=== PATIENT | male | born 1960 | race Caucasian/White ===

== ENCOUNTER 2024-12-24 08:39 | Day surgery (SDC) | payer MEDICARE ==
[2024-12-24] MEDS: Lactated Ringers 1,000 ML IV SCH (09:23)
[2024-12-24] MEDS ORDERED: fentaNYL 50 MCG/ML SDV ONE (10:28)
[2024-12-24] MEDS ORDERED: Midazolam 1 MG/ML 2 ML SDV ONE (10:28)
[2024-12-24] MEDS ORDERED: Propofol 200 MG/20 ML SDV ONE (10:28)
== END 2024-12-24 12:28 | disposition home or self-care (01) ==
LOC: JP.SDS 08:39
PROVIDERS: ATTEND Surgery
DX: Z12.11 Encounter for screening for malignant neoplasm of colon (principal); C79.51 Secondary malignant neoplasm of bone; I10 Essential (primary) hypertension; I25.10 Atherosclerotic heart disease of native coronary artery without angina pectoris; Z85.038 Personal history of other malignant neoplasm of large intestine
CPT/HCPCS: 45378; J2250; J2704; J3010; J7120